=== PATIENT | female | born 1935 | race Caucasian/White ===

== ENCOUNTER 2024-09-08 04:38 | Inpatient (IN) | payer OTHER, SELFPAY ==
[2024-09-07 23:50] VITALS: BP 160/77
[2024-09-08] VITALS (12 sets, daily range): BP systolic 102–136; BP diastolic 46–66; BMI 31.8; BMI 30.9
--- NOTE | 2024-09-08 00:17 | ED.GENMED ---
History of Present Illness
General
Chief Complaint: Gait Dysfunction
Source: patient and family (Niece)
Exam Limitations: none
Time Seen by Provider: 09/08/24 00:02
History of Present Illness
History of Present Illness:
This is a 89 year old female that comes in with c/o weakness. States that she was unable to get out of the chair as she was so weak. States that she was in the chair most of the day and all day yesterday. States that they were trying to call her but
she couldn't get up to answer the phone. States that she has had back pain and was told that she has a disc problem. States that a month ago she lost power in the left leg and so 2-3 weeks ago she saw the environmental education specialist. State that they
ordered PT BID.. States that she feels that since the PT in the past week she is getting weaker. A couple days ago she couldn't get to the BR. States that she feels off balance and head a headache earlier today. States that she is also nauseated.
Denies any fever, chills, chest pain, SOB, abd pain, vomiting, diarrhea, urinary burning.
Past History
Past History
ED Past Medical History: HTN, Hypercholesterolemia, NIDDM and ND
ED Past Surgical History: Cardiac (CABG X 3, Stents, )
Social History
Tobacco: Non-smoker
Alcohol: None
Personal: Single
Living: alone
Review of Systems
Review of Systems
All Other Systems: ROS reviewed and negative except as documented in HPI and ROS
Constitutional: Reports no symptoms; Denies fever or chills
EENT: Reports no symptoms
Respiratory: Reports no symptoms; Denies cough or trouble breathing
Cardiac: Reports no symptoms; Denies chest pain
ABD/GI: Reports nausea; Denies abdominal pain, vomiting or diarrhea
: Reports no symptoms; Denies dysuria, frequency or urgency
Musculoskeletal: Reports other (Bilateral leg weakness)
Skin: Reports no symptoms
Neurological: Reports dizzy (Off balance) and headache
Psychiatric: Reports no symptoms
Phy Exam
General Physical Exam
General Presentation: no apparent distress
General age: appears stated age
General Skin: warm and dry
General Habitus: elderly
General Mental: alert
General Hydration: dry mucous membranes
ENT Exam
ENT Exam: TM's normal, pharynx normal and neck supple
Eye Exam
Eye Exam: EOMI
Cardiovascular Exam
Cardiovascular Exam: regular rate/rhythm, normal peripheral pulses and other (Murmur)
Pulmonary Exam
Pulmonary Exam: no respiratory distress, chest non tender, no rhonchi, no wheezing, no cough and other (Rales at bases)
Gastrointestinal Exam
Gastrointestinal Exam: normal bowel sounds, non tender, soft, no organomegaly, no pulsatile mass and non distended
Musculoskeletal Exam
Musculoskeletal Exam: full ROM and edema (Lower leg nonpitting )
Skin Exam
Skin Exam: normal color, warm/dry, no rash and no petechia
Psychiatric Exam
Psychiatric Exam: normal mood/affect
Scores
Heart Failure Risk
Heart Failure Risk Score: Yes
History of Stroke or TIA: No
History of intubation for respiratory distress: No
Heart rate on ED arrival >/= 110: No
SaO2 <90% on arrival on room air: No
HR >/=110 during 3min walk test (or too ill to perform test): Yes
ECG has acute ischemic changes: No
Urea >/=12mmol/L (BUN 33.6mg/dL): Yes
Serum CO2>/=35mmol/L: No
Troponin I or T elevated to ND Level (0.4mg/dL): Yes
NT-proBNP >/=5,000ng/L (5,000pg/ml): Yes
HF Risk Score: 6
Admission Status: VERY HIGH RISK 55.3% Consider admission to hospital
Course
Orders/Labs/Results
Orders:
Orders
09/08/24 00:16
CR Chest - 2 Views Urgent
Comment:
Reason For Exam: Rales, leg edema
09/08/24 00:17
CT Head W/o Iv Contrast Urgent
Comment:
Reason For Exam: Weakness, dizziness. Headache
09/08/24 00:22
Straight cath- Treatment ONCE
Complete Blood Count/With Diff Urgent
Comprehensive Metabolic Panel Urgent
Manual Differential Urgent
NT-proBNP Urgent
Troponin I Urgent
09/08/24 00:27
Electrocardiogram (*1) Urgent
Reason for Study: Fatigue / Weakness
EKG- Treatment ONCE
09/08/24 01:26
COVID-19 Antigen Urgent
Source: Nasal Swab
09/08/24 01:39
Urinalysis Reflex To Culture Urgent
Date Specimen was Collected: 09/08/24
Time Specimen was Collected: 01:27
Urine Microscopic Reflex Cult Urgent
Urine Culture Urgent
JOHNIE Source: U
Specimen Description:
Date Specimen was Collected: 09/08/24
Time Specimen was Collected: 01:27
09/08/24 01:51
EKG- Treatment ONCE
09/08/24 02:08
CefTRIAXone [Rocephin] 1,000 mg IV NOW STA
09/08/24 03:20
Electrocardiogram (*1) Urgent
Reason for Study: Fatigue / Weakness
Other Reason for Exam: Repeat with Troponin
Troponin I Urgent
Abnormal Lab Results
09/08/24 09/08/24
00:22 01:39
WBC 17.2 H 10^3/uL
(4.8-10.8)
RBC 3.83 L 10^6/uL
(4.20-5.40)
Hgb 10.6 L g/dL
(12.0-16.0)
Hct 31.0 L %
(37.0-47.0)
MCV 80.9 L fL
(81.0-99.0)
RDW 14.8 H %
(11.5-14.5)
Abs Neuts (Manual) 16.5 H 10^3/uL
(1.4-6.5)
Segmented Neutrophils 86 H %
(42-75)
Band Neutrophils 10 H %
(0-3)
Lymphocytes (Manual) 1 L %
(20-51)
Monocytes (Manual) 1 L %
(2-9)
Sodium 129 L mmol/L
(135-145)
Chloride 97 L mmol/L
(98-107)
Carbon Dioxide 16 L mmol/L
(22-30)
BUN 63 H mg/dl
(7-17)
Creatinine 2.1 H mg/dL
(0.6-1.0)
Glucose 252 H mg/dl
(70-99)
Alkaline Phosphatase 142 H U/L
(38-126)
Troponin I 0.185 H* ng/ml
Ur Occult Blood Reflex 4+ A
(Negative)
Leukocyte Esterase Rfl 2+ A
(Negative)
Urine WBC (Reflex) >100 A /HPF
(0-5)
Urine Bacteria (Reflex) Many A
(Negative)
Urine Albumin (Reflex) 2+ A
(Neg - Trace)
09/08/24 00:22
09/08/24 00:22
Leukocytosis, H/H low. Hyponatremia, Chloride slightly low. Carbon dioxide low. Acute renal failure, Hyperglycemia. Alk phos elevation. Troponin 0.185 Pro-BNP 8340,
Urine is positive for infection.
Vital Signs
Initial and Last Documented VS:
Initial Vital Signs
Temp Pulse Resp BP Pulse Ox
99.3 F 84 22 160/77 97
09/07/24 23:50 09/07/24 23:50 09/07/24 23:50 09/07/24 23:50 09/07/24 23:50
Last Documented Vital Signs
Temp Pulse Resp BP Pulse Ox
99.3 F 80 23 119/54 95
09/07/24 23:50 09/08/24 01:45 09/08/24 01:45 09/08/24 01:41 09/08/24 01:45
MDM/Problems Addressed
Differential Diagnosis Includes:
Generalized weakness. CHF, COVID,
MDM/Problems Addressed:
This is a 89 year old female that comes in with c/o weakness. States that she has not been able to get out of the chair in the past 2 days. States that her legs re very weak. States that she has been getting PT and she felt that she is getting worse.
Will check labs, CT head, ECG, COVID.
Back into see patient. Explained that she would be admitted. Explained that her WBC are elevated and this may be due to a UTI but urine is still pending but there is a fowl smell. Her Troponin is elevated along with her Pro-BNP. Her Kidney function
is also elevated. Patient has no prior labs. Will admit.
Chronic conditions affecting care: DM and CAD
Acute Exacerbation and/or Progression of Chronic Illness:
NA
*Radiology
Radiology exam reviewed: preliminary read by ED provider (Chest- Cardiomegaly, Negative for acute disease. ) and radiology read reviewed (CT head- Night hawk- No acute intracranial findings. No evidence of intracranial hemorrhage, mass effect,
midline shift, or extra-axial fluid collection. )
*Pulse Oximetry
Patient hypoxic: no
*EKG
Interpreted by ED Provider?: Yes
Heart Rate: 83
Rate: normal
Rhythm: sinus
[place]: left axis deviation
Interval: normal interval
QRS Pattern: right bundle branch block
Ischemia: ST depression (with T wave inversion, V1, V2, V3, )
*Critical Care Note
Total Time (30-74mins, 75-104mins- exclusive of procedures): Not Applicable
ED Attending Note
-
Portions of this chart may have been created with voice recognition software.� Occasional wrong word or��sound alike� substitutions may have occurred due to the inherent limitations of voice recognition software.
Discharge Plan
Departure
Patient Disposition: Admit
Date of Disposition: 09/08/24
Time of Disposition: 01:59
Admit to: Telemetry
Presentation/result/management discussed w/ accepting MD/DO: Hospitalist
Patient with high blood pressure during this ER visit?: No
Condition: Good
Covid-19: Negative COVID-19
Discharge Problem:
Weakness, Elevated troponin, Acute renal failure, Urinary tract infection
Prescriptions:
No Action
Amlodipine Besilate
5 mg PO BID
metformin 500 mg Tablet
500 mg PO BID
atorvastatin 10 mg Tablet
10 mg PO HS
metoprolol tartrate 100 mg Tablet
100 mg PO BID
glimepiride 2 mg Tablet
2.5 PO DAILY
hydrochlorothiazide 12.5 mg Capsule
12.5 mg PO .3X PER WEEK
Januvia 100 mg Tablet
100 mg PO DAILY
lisinopril
1 tab PO DAILY
Patient Comments:
DOESN'T KNOW MG
Interventions
Interventions:
*Risk Screen - Suicide Last Done: 09/07/24 23:50
*General Assessment Last Done: 09/08/24 00:23
*Neglect/Abuse Screening Last Done: 09/07/24 23:50
ED- Fall Risk Assessment Last Done: 09/08/24 00:23
*ED COVID-19 Vaccine History Last Done: 09/08/24 00:23
ED- Pulmonary Assessment Last Done: 09/08/24 00:23
ED- Neurological Assessment Last Done: 09/08/24 00:23
ED-Musculoskeletal Assessment Last Done: 09/08/24 00:23
ED- Cardiac Assessment Last Done: 09/08/24 00:23
Discharge Date and Time
Print Language: [place] CITIZEN
[2024-09-08 01:10] LABS: Hemoglobin 10.6 g/dL (12.0-16.0); Mean Corp Hgb Conc. 34.2 g/dL (33.0-37.0); Mean Corpuscular Hgb 27.7 pg (27.0-31.0); Mean Corpuscular Volume 80.9 fL (81.0-99.0); Mean Platelet Volume 9.8 fL (7.4-10.4); Platelet Count 208 10^3/uL (130-400); Red Blood Cell Count 3.83 10^6/uL (4.20-5.40); Red Cell Dist. Width 14.8 % (11.5-14.5); White Blood Cell Count 17.2 10^3/uL (4.8-10.8)
[2024-09-08 01:21] LABS: NT-proBNP 8340 pg/ml
[2024-09-08 01:22] LABS: ALT (SGPT) 15 U/L (0-35); AST (SGOT) 23 U/L (14-36); Albumin 3.5 g/dl (3.5-5.0); Alkaline Phosphatase 142 U/L (38-126); Blood Urea Nitrogen 63 mg/dl (7-17); Calcium 8.7 mg/dl (8.4-10.2); Carbon Dioxide 16 mmol/L (22-30); Chloride 97 mmol/L (98-107); Estimated Creatinine Clearance 20 ml/min; Glucose 252 mg/dl (70-99); Potassium 4.6 mmol/L (3.5-5.1); Sodium 129 mmol/L (135-145); Total Bilirubin 0.5 mg/dl (0.2-1.3); Total Protein 6.4 g/dl (6.3-8.2); eGFR 22.38
[2024-09-08 01:44] LABS: Troponin I 0.185 ng/ml
[2024-09-08 01:51] LABS: Absolute Neutrophils -Man Diff 16.5 10^3/uL (1.4-6.5); Band Neutrophils 10 % (0-3); Eosinophils 2 % (0-6); Lymphocytes 1 % (20-51); Monocytes 1 % (2-9); Normal RBC Morphology Yes; Platelets Checked Yes; Segmented Neutrophils 86 % (42-75); Total Cells Counted 100; Toxic Granulation 1+; Vacuolated Segs Occasional
[2024-09-08 01:53] LABS: COVID-19 Antigen Negative (Negative)
[2024-09-08 01:54] LABS: Urine Albumin 2+ (Neg - Trace); Urine Bilirubin Negative (Negative); Urine Character Slightly Cloudy (Clear); Urine Color Yellow; Urine Glucose Negative (Negative); Urine Ketone Negative (Negative); Urine Leukocyte 2+ (Negative); Urine Nitrite Negative (Negative); Urine Occult Blood 4+ (Negative); Urine Specific Gravity 1.015 (<1.030); Urine Urobilinogen Negative (Neg - 1+)
[2024-09-08 02:02] LABS: Urine Amorphous Seen; Urine Bacteria Many (Negative); Urine Squamous Cell >30 /LPF (Few); Urine White Cell >100 /HPF (0-5)
[2024-09-08 02:04] LABS: Urine Granular Cast 0-2 /LPF (0); Urine White Cell Cast 0-2 /LPF
[2024-09-08] MEDS: ROCEPHIN 1000 MG IV (02:39)
--- NOTE | 2024-09-08 03:03 | HPS.HSE ---
Family Physician
-
Family Physician:
Chief Complaint
-
Weakness
History of Present Illness
This is a 89-year-old with past medical history significant for CAD status post CABG, hypertension, hyperlipidemia and mvl-ymqmukc-msuktkyzc diabetes who presents to the emergency department with difficulty with ambulation.
Patient was recently diagnosed with knee arthritis as well as sciatica. She has been having trouble with ambulation but has been improving with physical therapy up until around Thursday. She started having gait difficulties on Thursday. Thereafter
she started feeling weak and today patient was not even able to get out of bed. She reported that she was getting call from family members but she had no strength to get out of bed to picking crew supervisor the phone. Ultimately family members came to visit and
had to give her food. During [place] gathering patient was weak and unable to ambulate so family brought her to the emergency department. Patient herself denies chest pain, dyspnea on exertion palpitations lightheadedness or dizziness. She
denies any abdominal pain. She denies dysuria hematuria. He denies flank pain. She denies incontinence or frequency. Patient denies fevers or chills. She has no known sick contacts. At baseline she ambulates with a cane and she is still lives
by self and drives.
In the ED she was afebrile with a temp of 99.3, blood pressure was stable at 120/50 with a pulse of 80. She was satting 98% on room air. ECG shows sinus rhythm with a rate of 82 and a right bundle. No prior to compare. Troponin was elevated at
0.1 and a BNP was also elevated at 8000. UA was positive with WBCs bacteria and leukocyte esterase. No nitrites. She had a white count of 17,000 with 10% bandemia. Hemoglobin and platelet counts were normal. Sodium was 129, BUN and creatinine
elevated at 63 and 2.1 but we do not have priors. Chest x-ray shows no acute infiltrates. CT of the head shows no acute intracranial abnormalities.
Medical History
Past Medical History
Past Medical History: Reports CAD, HTN, Hypercholesterolemia and NIDDM
Additional Past Medical History:
Sciatica
Past Surgical History: Reports Cardiac (Status post CABG in 2003, unknown history of stents.)
Social History
Tobacco: Non-smoker
Alcohol: None
Drug: None
Personal: Single
Living: Alone
Employment: Retired
Family History
Family History: Not pertinent
Allergies / Home Medications
Allergies reflects when Allergies were last updated in [facility] [employer].
Home Medications with original date entered in [facility]
Allergy/Medication List:
Allergies
Allergy/AdvReac Type Severity Reaction Status Date / Time
No Known Allergies Allergy Verified 09/07/24 23:53
Home Medications
Amlodipine Besilate 5 mg PO BID 09/08/24
atorvastatin 10 mg tablet 10 mg PO HS 09/08/24
glimepiride 2 mg tablet 2.5 PO DAILY 09/08/24
hydrochlorothiazide 12.5 mg capsule 12.5 mg PO .3X PER WEEK 09/08/24
lisinopril 1 tab PO DAILY 09/08/24
metformin 500 mg tablet 500 mg PO BID 09/08/24
metoprolol tartrate 100 mg tablet 100 mg PO BID 09/08/24
sitagliptin phosphate 100 mg tablet (Januvia) 100 mg PO DAILY 09/08/24
Review of Systems
-
Constitutional: Reports Fatigue
EENT: Reports No Symptoms
Respiratory: Reports No Symptoms
Cardiac: Reports No Symptoms
Abdomen/GI: Reports No Symptoms
: Reports No Symptoms
Musculoskeletal: Reports Edema
Skin: Reports No Symptoms
Neurological: Reports Weakness
Endocrine: Reports No Symptoms
Hematologic/Lymphatic: Reports No Symptoms
Psych: Reports No Symptoms
Physical Exam
Vital Signs
Vital Signs
Temp Pulse Resp BP Pulse Ox
99.3 F 80 23 119/54 95
09/07/24 23:50 09/08/24 01:45 09/08/24 01:45 09/08/24 01:41 09/08/24 01:45
Physical Exam
General: Well Developed, Well Nourished, Comfortable and Conversant
HEENT: NormoCephalic, Anicteric, Moist mucous membranes and Atraumatic
Respiratory: Clear and Non Labored Respirations
Cardiac: S1/S2 and Regular Rhythm
Breast: Deferred by me
GI: Soft, Non Tender, Non Distended and Normal Bowel Sounds
Rectal: Deferred by Provider
Genito-urinary: Turbid Urine
Musculoskeletal: No Clubbing, No Cyanosis, Edema, Left Lower Extremity and Edema, Right Lower Extremity
Skin: Warm
Neuro: AO x 3 and Nonfocal/grossly intact
Hematologic/Lymphatic: No Lymphadenopathy
Psych: Calm
Laboratory Results
-
09/08/24 00:22
09/08/24 00:22
Laboratory Results
Total Bilirubin 0.5 mg/dl (0.2-1.3) 09/08/24 00:22
AST 23 U/L (14-36) 09/08/24 00:22
ALT 15 U/L (0-35) 09/08/24 00:22
Alkaline Phosphatase 142 U/L (38-126) H 09/08/24 00:22
Troponin I 0.185 ng/ml H* 09/08/24 00:22
Data Reviewed
-
Diagnostic Radiology: Image Personally Visualized and interpreted
CT Scan: Report Reviewed by me
Medical Tests (Nuc Med, Echo, EKG etc): Image Personally Visualized and interpreted
Lab Data: Labs Reviewed by me
Old Records: Reviewed
Impression/Plan
-
IMPRESSION:
89-year-old with past medical history significant for CAD status post CABG, hypertension and diabetes presenting to the emergency department with generalized weakness but mostly lower extremity, chronic lower extremity swelling and found to have a
positive UA, she has signs of systemic infection with leukocytosis and bandemia. Troponin was elevated at 0.18 and BNP was also elevated without other signs of overt heart failure.
PLAN:
1. Weakness - Patient with acute weakness over the last 3 days. U/A is positive. COVID is negatvie. She has leukocytosis and bandemia. Presumed UTI
- admit to telemetry due to elevated trop
- urine cultures sent
- blood cultures if febrile
- iv ceftriaxone for now (no h/o recent abx or hospitalization but systemic findings on labs)
- PT evaluation
2. CAD - h/o CAD s/p CABg here with trop of 0.18. No chest pain and normal ECG. Suspect non-ischemic myocardial injury but cannot rule out cardiomyopathy
- telemetry
- cycle enzymes
- aspirin 81 and statin
- echo in am, cardiovascular testing and tsh
- cardiology consult
- no heparin for now
- treating underlying infection
3. SUKUMAR - No baseline creatinine for comparison. Patient does not follow up closely. She is on acei and hctz chronically. Does not look particularly dehydrated. Possible CKD
- obtain records from physicians
- check renal u/s
- avoid nephrotoxins
- hold acei and hctz for now
- renal consult pending records
4. Hyponatremia - Suspect acute on chronic. On fairly low dose hctz
- hold hctz
- orthostatic vital signs
- check tsh and cortisol as well as urine studies
5. DM II
- hold metformin
- continue glimepiride w/ sliding scale insulin
DVT PPX - heparin sq
Code status - full code
[2024-09-08 04:08] LABS: Troponin I 0.326 ng/ml
[2024-09-08] MEDS: LOW STRENGTH ASPIRIN 324 MG PO (04:40)
[2024-09-08 05:50] LABS: Hematocrit 28.1 % (37.0-47.0); Hemoglobin 9.6 g/dL (12.0-16.0); Mean Corp Hgb Conc. 34.2 g/dL (33.0-37.0); Mean Corpuscular Hgb 27.7 pg (27.0-31.0); Mean Corpuscular Volume 81.2 fL (81.0-99.0); Platelet Count 206 10^3/uL (130-400); Red Blood Cell Count 3.46 10^6/uL (4.20-5.40); Red Cell Dist. Width 14.7 % (11.5-14.5); White Blood Cell Count 15.3 10^3/uL (4.8-10.8)
[2024-09-08 06:14] LABS: Troponin I 0.334 ng/ml
[2024-09-08 06:15] LABS: Blood Urea Nitrogen 63 mg/dl (7-17); Calcium 8.5 mg/dl (8.4-10.2); Carbon Dioxide 19 mmol/L (22-30); Chloride 97 mmol/L (98-107); Creatine Phosphokinase 45 U/L (30-135); Estimated Creatinine Clearance 20 ml/min; Glucose 227 mg/dl (70-99); HDL Cholesterol 20 mg/dl; LDL Cholesterol, Calculated 49 mg/dl; Magnesium 1.9 mg/dl (1.6-2.3); Potassium 4.4 mmol/L (3.5-5.1); Sodium 127 mmol/L (135-145); Total Cholesterol 102 mg/dl (50-199); Triglyceride 166 mg/dl (10-149); Very Low Density Lipoprotein 33 mg/dl (0-30); eGFR 22.38
[2024-09-08 06:33] LABS: TSH 2.05 uIU/ml (0.47-4.68)
--- NOTE | 2024-09-08 06:36 | PTCARENOTE ---
Pt admitted to rm 339-1 and was pulled over from stretcher to bed d/t LE weakness. Pt aaox3 and VSS. Pt NSR w/ BBB on tele #13. Pt voided on bedpan and was instructed to use call scales to call staff. Eligio Salmon at bedside during admission. Call
scales within reach, and plan of care ongoing.
[2024-09-08 07:01] LABS: Urine Sodium 62 mmol/L (30-90)
[2024-09-08] MEDS: TYLENOL 650 MG PO (07:09)
[2024-09-08 07:25] LABS: Osmolality Urine 355 mOsm/kg (300-900)
--- NOTE | 2024-09-08 07:38 | PTCARENOTE ---
Pt c/o pain in lower abd that was 'shooting down legs'. Per pt and chart, recent diagnosis of sciatica. Pt repositioned w/ a pillow under buttocks and sat up. PRN Tylenol 650mg given (see MAR). Pt stated repositioning her 'took some of the pressure
off' her back. Dayshift RN given report and notified. Plan of care ongoing and call scales within reach.
--- NOTE | 2024-09-08 08:12 | CON.CAR ---
Addendum entered and electronically signed by Alan Gama MD 09/08/24 15:21:
Echo shows normal LVEF, and wall motion. Consistent with acute non-ischemic myocardial injury in setting of UTI.
She also has moderate TR and moderate pulmonary hypertension on echo.
Please call us back with additional questions.
Addendum entered and electronically signed by Alan Gama MD 09/08/24 11:05:
89 yo female with PMH of CAD/CABG, HTN, hyperlipidemia is admitted with weakness. Found to have UTI and SUKUMAR. No chest pain, SOB. We are consulted for elevated troponin. Exam with RRR, no murmurs, 1+ LE edema. TnI 0.33. EKG: NSR, 1st degree AVB,
iRBBB.
Elevated troponin. Suspect acute non-ischemic myocardial injury in setting of UTI. Will check echo. If unremarkable, she can follow up with candle wrapping machine operator as outpatient.
CAD/CABG. Stable: continue ASA, statin.
Original Note:
Consultation
Consultation Request
Date/Time Consultation Requested: 09/08/24 05
Date/Time Consultation Performed: 09/08/24 0800
Requesting Provider: Dr. Weaver
Performing Provider: Edwina PICKETT for Dr. Gama
Reason for Consultation: Abnormal troponin
Medical History
-
Chief Complaint: weakness
History of Present Illness:
89 y/o female with CAD s/p CABG 2003 ([place])- candle wrapping machine operator Dr. Altamirano (but hasn't seen in about 10 years), hypertension, dyslipidemia, and diabetes who is here for evaluation of weakness over the past few days. She has been dealing with LLE pain and
is in PT for that after seeing an orthopedic physician who felt it was hamstring related. She has BLE edema L > R, which is chronic, but a bit worse than usual. She had lower abdominal and back pain overnight, but feels much better after Tylenol and
repositioning by nursing. Her niece Viky is at the bedside and helps with history. Patient is seen to have a UTI, SUKUMAR (we don't have a baseline, but patient denies history of renal dysfunction), and hyponatremia. She is being treated with
antibiotics. We are consulted for abnormal troponin. EKG abnormal with IC RBBB and ST/T abnormalities, but no baseline to compare. Patient denies any CP or SOB. She is in no distress at the time of my assessment.
Past Medical History
Past Medical History: CAD, HTN, Hypercholesterolemia and NIDDM
Social History
Tobacco: Non-Smoker
Alcohol: None
Family History
Family History: Reviewed & Not Pertinent
Allergies / Home Medications
Allergy/AdvReac Type Severity Reaction Status Date / Time
No Known Allergies Allergy Verified 09/07/24 23:53
�Medication �Instructions �Recorded �Confirmed �Type
Amlodipine Besilate 5 mg PO BID 09/08/24 09/08/24 History
atorvastatin 10 mg tablet 10 mg PO HS 09/08/24 09/08/24 History
glimepiride 2 mg tablet 2.5 PO DAILY 09/08/24 History
hydrochlorothiazide 12.5 mg capsule 12.5 mg PO .3X PER WEEK 09/08/24 09/08/24 History
lisinopril 1 tab PO DAILY 09/08/24 09/08/24 History
metformin 500 mg tablet 500 mg PO BID 09/08/24 09/08/24 History
metoprolol tartrate 100 mg tablet 100 mg PO BID 09/08/24 09/08/24 History
sitagliptin phosphate 100 mg 100 mg PO DAILY 09/08/24 09/08/24 History
tablet (Januvia)
Review of Systems
-
History Source: Patient
All other systems: Negative unless noted
Abdomen/GI: Abdominal Pain
Musculoskeletal: Edema and Other (back pain, LLE pain)
Neurological: Weakness
Physical Exam
Vital Signs
Temp Pulse Resp BP Pulse Ox
100.0 F 92 18 136/57 97
09/08/24 07:40 09/08/24 07:40 09/08/24 07:40 09/08/24 07:40 09/08/24 07:40
Lab Results
09/08/24 05:22
09/08/24 05:22
Troponin I 0.334 ng/ml H* 09/08/24 05:22
Lde-H-Zgvkmhkeghc Pept 8340 pg/ml 09/08/24 00:22
Physical Exam
General: Well Developed, Well Nourished and No Apparent Distress
HEENT: Normocephalic and Anicteric
Respiratory: Clear and Non Labored Respirations
Cardiac: Regular Rhythm
Musculoskeletal: Edema (mild BLE edema, L > R- chronic, but worsened recently)
Skin: Warm and Dry
Neuro: AO x 3
Psych: Calm
Impression / Plan
-
UTI (leukocytosis, low grade temp, abdominal/back pain, abnormal UA):
-antibiotics per primary team
Abnormal troponin:
-EKG abnormal as noted in detail, but no baseline and known heart disease
-denies CP or SOB
-suspect acute, non-ischemic myocardial injury in setting of acute illness with infection/UTI, SUKUMAR, hyponatremia
-can trend to peak and obtain echo
SUKUMAR:
-unknown baseline, but patient reports getting routine labs and never being told of renal issues. Metformin held.
-nephrology is consulted
Hyponatremia:
-worsened 127 now, HCTZ held
-nephrology consulted as above
CAD s/p CABG 2004:
-reports no cardiac issues since then
-continue ASA (I confirmed that she does take a baby aspirin every day at home), statin, and BB
HTN:
-stable
-continue CCB and BB
DM:
-per primary team
Data Reviewed
-
EKG: Tracing Personally Visualized and interpreted (NSR IC RBBB, ST/T abnormalities)
Radiology: Report Reviewed by me (CXR: Low lung volumes with mildly increased bronchovascular markings bilaterally. Scattered linear opacities compatible with atelectasis. No significant effusions. No pneumothorax.)
CT Scan: Report Reviewed by me (No acute intracranial abnormality.)
Medical Tests (Nuc Med, Echo etc): Other (echo ordered)
Labs: Labs Reviewed by me
[2024-09-08 08:37] LABS: Glucose - Point of Care 211 mg/dl (70-99)
[2024-09-08] MEDS: HEPARIN 5000 UNITS SC ×3 (09:02→23:02)
[2024-09-08] MEDS: SODIUM BICARBONATE 325 MG PO ×3 (09:03→22:58)
[2024-09-08] MEDS: AMARYL 2 MG PO (09:04)
[2024-09-08] MEDS: LOPRESSOR 100 MG PO ×2 (09:04→20:09)
--- NOTE | 2024-09-08 11:01 | W.PN.HOSP.TC ---
Today's Communication/Plan
-
Continue on telemetry
Trend troponins until they peak.
Consults pending.
Assessment / Plan
Assessment / Plan
89-year-old woman with past medical history of:
CAD status post CABG,
hypertension
diabetes
comes in with generalized weakness, chronic lower extremity swelling, a positive UA, signs of systemic infection with leukocytosis and bandemia. Troponin was elevated at 0.18 and BNP was also elevated without other signs of overt heart failure.
PLAN:
1. Weakness - likely multifactorial. U/A is positive. COVID is negative. She has leukocytosis and bandemia. Presumed UTI
- continue on telemetry due to elevated trop
- follow urine cultures
- blood cultures if febrile
- iv ceftriaxone
- PT evaluation
2. CAD - h/o CAD s/p CABg with trop of 0.18. No chest pain and normal ECG. Suspect non-ischemic myocardial injury but cannot rule out cardiomyopathy
- continue on telemetry
- cycle enzymes until they peak
- aspirin 81 and statin
- echo in am, cardiovascular testing and tsh
- cardiology consult appreciated
- no heparin for now
- treating underlying infection
3. SUKUMAR - No baseline creatinine for comparison. Patient does not follow up closely. She was on velma-i and hctz chronically. Does not look particularly dehydrated. Possible CKD
- obtain records from physicians
- renal u/s does not show blockage
- avoid nephrotoxins
- hold acei and hctz for now
- renal consult pending
4. Hyponatremia - Suspect acute on chronic. On fairly low dose hctz
- hold hctz
- orthostatic vital signs
- check tsh and cortisol as well as urine studies
-check daily
5. DM II
- hold metformin
- continue glimepiride w/ sliding scale insulin
6. Anemia, H/H 9.6/28.1
- follow daily
- no current indication for transfusion
DVT PPX - heparin sq
Full code
Anticipated Discharge: > 48 hours
Subjective/Interval History
-
Date of Service: September 08, 2024
Feels much better. No new symptoms.
Objective Data
-
Labs:
Laboratory Results
09/08/24 09/08/24
00:22 05:22
WBC 17.2 H 15.3 H
Hgb 10.6 L 9.6 L
Hct 31.0 L 28.1 L
Plt Count 208 206
Sodium 129 L 127 L
Potassium 4.6 4.4
Chloride 97 L 97 L
Carbon Dioxide 16 L 19 L
BUN 63 H 63 H
Creatinine 2.1 H 2.1 H
Glucose 252 H 227 H
Calcium 8.7 8.5
Total Bilirubin 0.5
AST 23
ALT 15
Alkaline Phosphatase 142 H
Vital Signs:
Vital Signs
Temp Pulse Resp BP Pulse Ox
100.0 F 92 18 136/57 97
09/08/24 07:40 09/08/24 09:04 09/08/24 07:40 09/08/24 09:04 09/08/24 07:40
Review of Systems
-
History Source: Patient
All other systems: Reviewed and negative
Physical Exam
-
General: Well Developed, Well Nourished, No Apparent Distress, Comfortable and Obese
HEENT: Normocephalic, Nose Appears Normal and Ears Appear Normal
Respiratory: Clear to Auscultation
Cardiac: Regular Rhythm and S1/S2
GI: Soft, Nontender and Nondistended
Musculoskeletal: No Clubbing, No Cyanosis and No Edema
Skin: Warm and Dry
Neuro: Awake, Alert and Oriented
Psych: Calm
Data Reviewed
-
Labs: Labs Reviewed by me
[2024-09-08 11:45] LABS: Troponin I 0.272 ng/ml
--- NOTE | 2024-09-08 12:45 | CM ---
Patient seen at bedside with nephew present. Per Niece Lary; listed on contact list. Patient lives in an apartment on first floor 6 steps to enter. Family supports in place include, her parents and number of Nieces and nephews. Patient PCP "Keenan"Galo and she uses the [facility] on [facility]. Patient family plan is for her to return to the apartment when medically appropriate and family to assist. CM will continue to follow for discharge planning needs.
Plan; home with family supports; watch for home VN needs.
[2024-09-08 13:00] LABS: Glucose - Point of Care 276 mg/dl (70-99)
[2024-09-08] MEDS: NOVOLOG FLEXPEN-LOW RESISTANCE SC (13:06)
[2024-09-08] MEDS: NOVOLOG FLEXPEN-LOW RESISTANCE 3 UNITS SC (13:46)
--- NOTE | 2024-09-08 15:40 | W.CON.NEPH ---
Consultation
-
Date/Time Consultation Requested: September 08, 2024 at 6 AM
Date/Time Consultation Performed: September 08, 2024 at 3:30 PM
Requesting Provider: Dr. Waever
Performing Provider: Amaury Daniel DO
Reason for Consultation: Acute kidney injury
Medical History
-
Chief Complaint: Acute kidney injury
History of Present Illness:
89-year-old with past medical history significant for CAD status post CABG, hypertension, hyperlipidemia and qdl-yxjrzdn-qklwypqar diabetes who presents to the emergency department with difficulty with ambulation.
Renal consult for creatinine of 2.1 uncertain baseline patient says she has not been told she has a kidney issues
Of note she is had a injured hamstring which she has been instructed to take Advil for. She has been taking 2 Advil twice a day for about 3 weeks. She has some difficulty urinating but no dysuria she does have back pain
Also presents with a sodium 127 on hydrochlorothiazide
She has no chest pain shortness of breath nausea or vomiting she does have increased lower extremity edema
Past Medical History
CAD status post CABG, hypertension, hyperlipidemia and ipc-khlwboe-dfgorbdol diabetes
Social History
Tobacco: Non-Smoker
Alcohol: None
Family History
No family history of renal disease
Allergies / Home Medications
Allergy/AdvReac Type Severity Reaction Status Date / Time
No Known Allergies Allergy Verified 09/07/24 23:53
�Medication �Instructions �Recorded �Confirmed �Type
Amlodipine Besilate 5 mg PO BID 09/08/24 09/08/24 History
atorvastatin 10 mg tablet 10 mg PO HS 09/08/24 09/08/24 History
glimepiride 2 mg tablet 2.5 PO DAILY 09/08/24 History
hydrochlorothiazide 12.5 mg capsule 12.5 mg PO .3X PER WEEK 09/08/24 09/08/24 History
lisinopril 1 tab PO DAILY 09/08/24 09/08/24 History
metformin 500 mg tablet 500 mg PO BID 09/08/24 09/08/24 History
metoprolol tartrate 100 mg tablet 100 mg PO BID 09/08/24 09/08/24 History
sitagliptin phosphate 100 mg 100 mg PO DAILY 09/08/24 09/08/24 History
tablet (Januvia)
Review of Systems
-
Lower extremity edema decreased urine output difficulty ambulating
All other systems: Negative unless noted
Physical Exam
Vital Signs
Vital Signs
Temp Pulse Resp BP Pulse Ox
97.7 F 69 16 102/58 97
09/08/24 11:35 09/08/24 11:35 09/08/24 11:35 09/08/24 11:35 09/08/24 11:35
Lab Results
WBC 15.3 10^3/uL (4.8-10.8) H 09/08/24 05:22
RBC 3.46 10^6/uL (4.20-5.40) L 09/08/24 05:22
Hgb 9.6 g/dL (12.0-16.0) L 09/08/24 05:22
Hct 28.1 % (37.0-47.0) L 09/08/24 05:22
Plt Count 206 10^3/uL (130-400) 09/08/24 05:22
Sodium 127 mmol/L (135-145) L 09/08/24 05:22
Potassium 4.4 mmol/L (3.5-5.1) 09/08/24 05:22
Chloride 97 mmol/L (98-107) L 09/08/24 05:22
Carbon Dioxide 19 mmol/L (22-30) L 09/08/24 05:22
BUN 63 mg/dl (7-17) H 09/08/24 05:22
Creatinine 2.1 mg/dL (0.6-1.0) H 09/08/24 05:22
eGFR 22.38 09/08/24 05:22
Glucose 227 mg/dl (70-99) H 09/08/24 05:22
Calcium 8.5 mg/dl (8.4-10.2) 09/08/24 05:22
Fiz-V-Vxcgwjnfdqs Pept 8340 pg/ml 09/08/24 00:22
Albumin 3.5 g/dl (3.5-5.0) 09/08/24 00:22
Physical Exam
General no acute distress
HEENT no cephalic atraumatic extraocular muscle intact no scleral icterus no JVD neck supple
lungs clear to auscultation bilateral
heart regular S1-S2 positive
abdomen soft nontender positive bowel sounds
extremities +2 edema bilateral l
Neurologically nonfocal alert and oriented x 3
Skin no lesions no abrasions no petechiae
Psych normal affect no bizarre behavior
Data Reviewed
-
Radiology: Image Personally Visualized and interpreted
Ultrasound: Image Personally Visualized and interpreted (Nonobstructive renal pathology. Normal-sized kidney. Normal cortex thickening with some mild echogenicity)
Labs: Labs Reviewed by me
Assessment/Plan
-
Impression:
Acute on chronic kidney disease unknown baseline. She has chronic kidney disease based on age alone (creatinine on admission 2.1)
Hyponatremia= 127
Leukocytosis likely UTI
History of CAD mild elevation in troponin= echocardiogram on this admission ejection fraction 55 to 60% with stage II diastolic dysfunction
Type 2 diabetes
Plan:
Acuity multifactorial secondary to Advil use twice a day for 3 weeks for left hamstring pain, superimposed on possible UTI in conjunction with hydrochlorothiazide and KAVON inhibitor: Enalapril
Agree with holding metformin/lisinopril/hydrochlorothiazide
Urinalysis noted greater than 100 white blood cells positive hematuria positive bacteria
Check eosinophils
Renal ultrasound independently reviewed no obstructive pathology/no renal calculi/normal size and minimal echogenicity
Corrected sodium for glucose 130
Decreased effective arterial blood volume contributing to clinical presentation but with significant lower extremity edema we will give her 1 dose of loop diuretic
Continue antibiotic and await cultures
Daily weights
Discussed with the family at bedside
[2024-09-08] MEDS: LASIX 40 MG IV (16:44)
[2024-09-08 17:51] LABS: Glucose - Point of Care 152 mg/dl (70-99)
[2024-09-08] MEDS: NOVOLOG FLEXPEN-LOW RESISTANCE 1 UNITS SC (17:58)
[2024-09-08 21:50] LABS: Glucose - Point of Care 160 mg/dl (70-99)
[2024-09-08 22:54] LABS: Protein/creatinine Ratio 1.8; Urine Protein 37 mg/dl
[2024-09-08] MEDS: LIPITOR 10 MG PO (22:58)
[2024-09-08 23:16] LABS: Body Fluid for Eosinophils No Eosinophils seen
[2024-09-09] MEDS: STERILE WATER FOR INJECTION 10 ML IV (01:47)
[2024-09-09] MEDS: ROCEPHIN 1000 MG IV (01:47)
--- NOTE | 2024-09-09 02:05 | PTCARENOTE ---
Pt juma in the 30s via telemetry. When woken up reported nausea, BP 164/67, denies dizziness/CP/SOB. Nausea resolved almost immediately, denies need to antiemetic. [employer] covering house made aware.
[2024-09-09 03:20] VITALS: BP 108/54
[2024-09-09 07:28] VITALS: BP 127/56
[2024-09-09 07:34] LABS: Glucose - Point of Care 69 mg/dl (70-99)
[2024-09-09] MEDS: NOVOLOG FLEXPEN-LOW RESISTANCE SC ×3 (07:38→17:38)
[2024-09-09 07:59] LABS: Glucose - Point of Care 80 mg/dl (70-99)
[2024-09-09 08:26] LABS: Hematocrit 28.5 % (37.0-47.0); Hemoglobin 9.7 g/dL (12.0-16.0); Mean Corpuscular Hgb 27.6 pg (27.0-31.0); Mean Platelet Volume 10.2 fL (7.4-10.4); Platelet Count 214 10^3/uL (130-400); Red Blood Cell Count 3.52 10^6/uL (4.20-5.40); Red Cell Dist. Width 14.9 % (11.5-14.5); White Blood Cell Count 12.7 10^3/uL (4.8-10.8)
[2024-09-09 08:33] LABS: Blood Urea Nitrogen 58 mg/dl (7-17); Calcium 8.3 mg/dl (8.4-10.2); Carbon Dioxide 20 mmol/L (22-30); Chloride 97 mmol/L (98-107); Estimated Creatinine Clearance 24 ml/min; Glucose 66 mg/dl (70-99); Potassium 3.6 mmol/L (3.5-5.1); Sodium 129 mmol/L (135-145); eGFR 28.84
[2024-09-09] MEDS: AMARYL 2 MG PO (08:46)
[2024-09-09] MEDS: SODIUM BICARBONATE 325 MG PO ×3 (08:46→21:07)
[2024-09-09] MEDS: HEPARIN 5000 UNITS SC ×3 (08:47→23:05)
[2024-09-09] MEDS: LOW STRENGTH ASPIRIN 81 MG PO (08:47)
[2024-09-09] MEDS: LOPRESSOR 100 MG PO ×2 (08:47→19:27)
[2024-09-09 11:11] VITALS: BP 145/60
[2024-09-09 11:53] LABS: Glucose - Point of Care 102 mg/dl (70-99)
--- NOTE | 2024-09-09 12:05 | W.PN.NEPH.PH ---
Today's Communication / Plan
-
lasix
Assessment/Plan
-
Impression:
Acute on chronic kidney disease unknown baseline. She has chronic kidney disease based on age alone (creatinine on admission 2.1)
Hyponatremia= 127
Leukocytosis likely UTI
History of CAD mild elevation in troponin= echocardiogram on this admission ejection fraction 55 to 60% with stage II diastolic dysfunction
Type 2 diabetes
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
Plan:
follow BMP
lasix again today
continue abx
FR 40oz for now
-
-
Date of Service: September 09, 2024
CC / HPI / ROS
-
Chief Complaint:
SUKUMAR
History of Present Illness:
SUKUMAR/Cr down to 1.7
Na low stable 129
acidosis persists 20
Review of Systems:
no CP/SOB
Labs
-
Labs:
WBC 12.7 10^3/uL (4.8-10.8) H 09/09/24 06:45
RBC 3.52 10^6/uL (4.20-5.40) L 09/09/24 06:45
Hgb 9.7 g/dL (12.0-16.0) L 09/09/24 06:45
Hct 28.5 % (37.0-47.0) L 09/09/24 06:45
Plt Count 214 10^3/uL (130-400) 09/09/24 06:45
Sodium 129 mmol/L (135-145) L 09/09/24 06:45
Potassium 3.6 mmol/L (3.5-5.1) 09/09/24 06:45
Chloride 97 mmol/L (98-107) L 09/09/24 06:45
Carbon Dioxide 20 mmol/L (22-30) L 09/09/24 06:45
BUN 58 mg/dl (7-17) H 09/09/24 06:45
Creatinine 1.7 mg/dL (0.6-1.0) H 09/09/24 06:45
eGFR 28.84 09/09/24 06:45
Glucose 66 mg/dl (70-99) L 09/09/24 06:45
Calcium 8.3 mg/dl (8.4-10.2) L 09/09/24 06:45
Tao-T-Yiihcvwmdlp Pept 8340 pg/ml 09/08/24 00:22
Albumin 3.5 g/dl (3.5-5.0) 09/08/24 00:22
Physical Exam
-
Vital Signs:
Vital Signs
Temp Pulse Resp BP Pulse Ox
98.2 F 70 16 145/60 97
09/09/24 11:11 09/09/24 11:11 09/09/24 11:11 09/09/24 11:11 09/09/24 11:11
Cardiovascular:: Regular rate and rhythm
Respiratory:: Bilateral: Coarse
Lung Excursion:: Normal
Abdomen:: Nontender and Soft
Bowel Sounds:: Normal
Extremity Edema:: +2: Bilateral:
--- NOTE | 2024-09-09 12:41 | W.PN.HOSP.TC ---
Today's Communication/Plan
-
Labs going in the right direction. Continue current treatment. U-Culture positive.
Assessment / Plan
Assessment / Plan
89-year-old woman with past medical history of:
CAD status post CABG,
hypertension
diabetes
comes in with generalized weakness, chronic lower extremity swelling, a positive UA, signs of systemic infection with leukocytosis and bandemia.
Troponin was elevated at 0.18 and BNP was also elevated without other signs of overt heart failure.
PLAN:
1. Weakness - likely multifactorial. U/A is positive. COVID is negative. She has leukocytosis and bandemia. Cultures now growing gram neg B.
- continue on telemetry due to elevated trop (they have peaked)
- follow urine cultures
- blood cultures if febrile
- iv ceftriaxone
- PT evaluation
2. CAD - h/o CAD s/p CABg with trop of 0.18. now peaked. No chest pain and normal ECG. Suspect non-ischemic myocardial injury
- continue on telemetry
- cycled enzymes until they peaked, which they have
- aspirin 81 and statin
- echo:
Normal biventricular size and systolic function without regional wall motion abnormality.
Estimated LVEF 55-60%.
Moderate tricuspid regurgitation.
Moderately elevated PASP.
Estimated pulmonary artery pressure of 54 mmHg, assuming a right atrial pressure of 3 mmHg.
- cardiology consult appreciated:
'Suspect acute non-ischemic myocardial injury in setting of UTI. Will check echo. If unremarkable, she can follow up with nurse assessor as outpatient.'
- no heparin for now
- treating underlying infection
3. SUKUMAR - improving. No baseline creatinine for comparison. Patient does not follow up closely. She was on velma-i and hctz chronically. Does not look particularly dehydrated. Possible CKD
- obtain records from physicians
- renal u/s does not show blockage
- avoid nephrotoxins
- hold acei and hctz for now
- renal consult pending
4. Hyponatremia - improving Suspect acute on chronic. On fairly low dose hctz
- hold hctz
- orthostatic vital signs
-check daily
5. DM II - now in good control
- hold metformin
- continue glimepiride w/ sliding scale insulin
6. Anemia, H/H 9.6/28.1, improving
- follow daily
- no current indication for transfusion
DVT PPX - heparin sq
Full code
Anticipated Discharge: > 48 hours
Subjective/Interval History
-
Date of Service: September 09, 2024
Feels the same as yesterday
Objective Data
-
Labs:
Laboratory Results
09/09/24
06:45
WBC 12.7 H
Hgb 9.7 L
Hct 28.5 L
Plt Count 214
Sodium 129 L
Potassium 3.6
Chloride 97 L
Carbon Dioxide 20 L
BUN 58 H
Creatinine 1.7 H
Glucose 66 L
Calcium 8.3 L
Vital Signs:
Vital Signs
Temp Pulse Resp BP Pulse Ox
98.2 F 70 16 145/60 97
09/09/24 11:11 09/09/24 11:11 09/09/24 11:11 09/09/24 11:11 09/09/24 11:11
I&O
09/08/24 09/09/24 09/10/24
06:59 06:59 06:59
Intake Total 720 / 720
Balance 720 / 720
Review of Systems
-
History Source: Patient
All other systems: Reviewed and negative
Physical Exam
-
General: Well Developed, Well Nourished, No Apparent Distress, Comfortable and Obese
HEENT: Normocephalic, Atraumatic, Nose Appears Normal and Ears Appear Normal
Respiratory: Clear to Auscultation; Negative Wheezes
Cardiac: Regular Rhythm and S1/S2
GI: Soft, Nontender and Nondistended
Musculoskeletal: No Clubbing, No Cyanosis, Edema, Right Lower Extrem and Edema, Left Lower Extrem
Skin: Warm and Dry
Neuro: Awake, Alert and Oriented
Psych: Calm
Data Reviewed
-
Labs: Labs Reviewed by me
[2024-09-09] MEDS: LASIX 40 MG IV (12:57)
[2024-09-09 15:23] VITALS: BP 156/61
[2024-09-09 17:26] LABS: Glucose - Point of Care 75 mg/dl (70-99)
[2024-09-09 19:37] VITALS: BP 164/64
[2024-09-09] MEDS: LIPITOR 10 MG PO (21:07)
[2024-09-09 21:45] LABS: Glucose - Point of Care 83 mg/dl (70-99)
[2024-09-09 23:39] VITALS: BP 135/58
[2024-09-10] VITALS (8 sets, daily range): BP systolic 139–180; BP diastolic 51–81; PULSE 70; O2SAT 97
[2024-09-10] MEDS: STERILE WATER FOR INJECTION 10 ML IV (01:31)
[2024-09-10] MEDS: ROCEPHIN 1000 MG IV (01:31)
[2024-09-10 03:04] LABS: Glucose - Point of Care 50 mg/dl (70-99)
[2024-09-10 03:21] LABS: Glucose - Point of Care 74 mg/dl (70-99)
[2024-09-10 05:39] LABS: Hematocrit 27.6 % (37.0-47.0); Hemoglobin 9.6 g/dL (12.0-16.0); Mean Corp Hgb Conc. 34.8 g/dL (33.0-37.0); Mean Corpuscular Volume 80.5 fL (81.0-99.0); Mean Platelet Volume 9.8 fL (7.4-10.4); Platelet Count 220 10^3/uL (130-400); Red Blood Cell Count 3.43 10^6/uL (4.20-5.40); Red Cell Dist. Width 14.6 % (11.5-14.5); White Blood Cell Count 9.1 10^3/uL (4.8-10.8)
[2024-09-10 06:06] LABS: Blood Urea Nitrogen 51 mg/dl (7-17); Calcium 7.9 mg/dl (8.4-10.2); Carbon Dioxide 24 mmol/L (22-30); Chloride 97 mmol/L (98-107); Estimated Creatinine Clearance 29 ml/min; Glucose 129 mg/dl (70-99); Potassium 3.6 mmol/L (3.5-5.1); Sodium 130 mmol/L (135-145); eGFR 36.41
[2024-09-10 07:37] LABS: Glucose - Point of Care 153 mg/dl (70-99)
[2024-09-10] MEDS: SODIUM BICARBONATE 325 MG PO ×3 (08:52→21:12)
[2024-09-10] MEDS: LOPRESSOR 100 MG PO ×2 (08:52→19:57)
[2024-09-10] MEDS: NOVOLOG FLEXPEN-LOW RESISTANCE SC (08:52)
[2024-09-10] MEDS: AMARYL 2 MG PO (08:53)
[2024-09-10] MEDS: LOW STRENGTH ASPIRIN 81 MG PO (08:53)
[2024-09-10] MEDS: HEPARIN 5000 UNITS SC ×3 (08:53→23:19)
--- NOTE | 2024-09-10 10:24 | W.PN.HOSP.TC ---
Addendum entered and electronically signed by Deshaun Chu DO 09/10/24 16:52:
Stable for discharge. Cleared by physical therapy.
Nursing reports that patient and daughter prefer for discharge in the morning.
Original Note:
Today's Communication/Plan
-
PT/OT
Acapella
Discharge
Assessment / Plan
Assessment / Plan
Gen-AAOx3, NAD, obese
HEENT-NC, AT, anicteric, clear oral mm
Neck-supple
CV-reg, no M, +S1/S2
Lungs-clear B/L
Abd-soft, NT, ND
Ext-no edema
Musculoskeletal-no cyanosis, clubbing
Skin-warm and dry
Neuro-grossly non-focal
Psych-calm, cooperative
Sepsis due to UTI -urine culture positive for E. coli. Currently on IV ceftriaxone. Will discharge on oral antibiotics possibly later today if stable.
Acute bronchitis -with occasional wheezing, cough. Acapella ordered. Chest x-ray without signs of pneumonia. Denies history of lung disease or smoking.
CAD - h/o CAD s/p CABg with trop of 0.18. now peaked. No chest pain and normal ECG. Suspect non-ischemic myocardial injury
- continue on telemetry
- cycled enzymes until they peaked, which they have
- aspirin 81 and statin
- echo:
Normal biventricular size and systolic function without regional wall motion abnormality.
Estimated LVEF 55-60%.
Moderate tricuspid regurgitation.
Moderately elevated PASP.
Estimated pulmonary artery pressure of 54 mmHg, assuming a right atrial pressure of 3 mmHg.
Troponin elevation due to acute nonischemic myocardial injury, possibly due to sepsis.
SUKUMAR - improving. No baseline creatinine for comparison. Patient does not follow up closely. She was on velma-i and hctz chronically. Does not look particularly dehydrated. Possible CKD
- obtain records from physicians
- renal u/s does not show blockage
- avoid nephrotoxins
- hold acei and hctz for now
- renal consult pending
Hyponatremia - improving Suspect acute on chronic. Permanently discontinue HCTZ on discharge. Discussed with patient and daughter.
DM2 with hypoglycemia -discontinue glimepiride. Check hemoglobin A1c.
- hold metformin due to SUKUMAR.
Microcytic anemia -baseline hemoglobin unknown. Recommend outpatient follow-up with PCP.
Obesity due to excess calories
Full code
Dispo -can discharge later today if cleared by PT/OT. Discussed with daughter at the bedside. Outpatient follow-up.
35-minute spent in discharge process.
Anticipated Discharge: Today
Subjective/Interval History
-
Date of Service: September 10, 2024
Patient seen and examined. Complaining of occasional wheezing, coughing. Denies shortness of breath. Overall feels better with less weakness.
Objective Data
-
Labs:
Laboratory Results
09/10/24
05:20
WBC 9.1
Hgb 9.6 L
Hct 27.6 L
Plt Count 220
Sodium 130 L
Potassium 3.6
Chloride 97 L
Carbon Dioxide 24
BUN 51 H
Creatinine 1.4 H
Glucose 129 H
Calcium 7.9 L
Vital Signs:
Vital Signs
Temp Pulse Resp BP Pulse Ox
97.7 F 66 17 160/71 97
09/10/24 07:22 09/10/24 07:22 09/10/24 07:22 09/10/24 07:35 09/10/24 07:22
I&O
09/09/24 09/10/24 09/11/24
06:59 06:59 06:59
Intake Total 720 / 720 660 / 660
Balance 720 / 720 660 / 660
Review of Systems
-
History Source: Patient
All other systems: Reviewed and negative
--- NOTE | 2024-09-10 10:34 | W.DS.TRANS ---
DC Summary - [employer]
-
Discharge Instructions:
Discharge Diagnosis/Procedures Sepsis, UTI, acute bronchitis, anemia,
hyponatremia
Diet Restrict fluids to 48 oz,Diabetic, Carb
Controlled
Activity As tolerated
Driving Restrictions As prior to admission
Bathing Restrictions None
Blood Work BMP, CBC next week with your primary care doctor
Instructions:
Stand-Alone Forms:
Changes to Home Medications: Yes
Discharge Medications:
DC Medications w/original date entered in [employer]
Amlodipine Besilate 5 mg PO BID Blood Pressure 09/08/24
atorvastatin 10 mg tablet 10 mg PO HS High Cholesterol 09/08/24
lisinopril 1 tab PO DAILY Blood Pressure 09/08/24
metformin 500 mg tablet 500 mg PO BID Diabetes 09/08/24
metoprolol tartrate 100 mg tablet 100 mg PO BID Blood Pressure 09/08/24
sitagliptin phosphate 100 mg tablet (Januvia) 100 mg PO DAILY Diabetes 09/08/24
aspirin 81 mg chewable tablet 81 mg PO DAILY #0 tabs 09/10/24
ciprofloxacin HCl 500 mg tablet 500 mg PO BID #10 tabs 09/10/24
Home Medication Changes
Stop hydrochlorothiazide
Hold metformin until you speak with your primary care doctor on Thursday.
Pending Results: No
--- NOTE | 2024-09-10 10:46 | W.PN.NEPH.PH ---
Today's Communication / Plan
-
po lasix
Assessment/Plan
-
Impression:
Acute on chronic kidney disease unknown baseline. She has chronic kidney disease based on age alone (creatinine on admission 2.1)
Hyponatremia= 127
Leukocytosis likely UTI
History of CAD mild elevation in troponin= echocardiogram on this admission ejection fraction 55 to 60% with stage II diastolic dysfunction
Type 2 diabetes
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
Plan:
follow BMP
lasix again today, use po
no more HCTZ
continue abx
FR 40oz for now
can use lasix 40mg MWF to diurese and 20mg MWF maintenance in future
d/w daughter
-
-
Date of Service: September 10, 2024
CC / HPI / ROS
-
Chief Complaint:
SUKUMAR
History of Present Illness:
SUKUMAR/Cr down to 1.4
Na up to 130
acidosis resolved
Review of Systems:
no CP/SOB
Labs
-
Labs:
WBC 9.1 10^3/uL (4.8-10.8) 09/10/24 05:20
RBC 3.43 10^6/uL (4.20-5.40) L 09/10/24 05:20
Hgb 9.6 g/dL (12.0-16.0) L 09/10/24 05:20
Hct 27.6 % (37.0-47.0) L 09/10/24 05:20
Plt Count 220 10^3/uL (130-400) 09/10/24 05:20
Sodium 130 mmol/L (135-145) L 09/10/24 05:20
Potassium 3.6 mmol/L (3.5-5.1) 09/10/24 05:20
Chloride 97 mmol/L (98-107) L 09/10/24 05:20
Carbon Dioxide 24 mmol/L (22-30) 09/10/24 05:20
BUN 51 mg/dl (7-17) H 09/10/24 05:20
Creatinine 1.4 mg/dL (0.6-1.0) H 09/10/24 05:20
eGFR 36.41 09/10/24 05:20
Glucose 129 mg/dl (70-99) H 09/10/24 05:20
Calcium 7.9 mg/dl (8.4-10.2) L 09/10/24 05:20
Egd-U-Izqvezrnmri Pept 8340 pg/ml 09/08/24 00:22
Albumin 3.5 g/dl (3.5-5.0) 09/08/24 00:22
Physical Exam
-
Vital Signs:
Vital Signs
Temp Pulse Resp BP Pulse Ox
97.7 F 66 17 160/71 97
09/10/24 07:22 09/10/24 07:22 09/10/24 07:22 09/10/24 07:35 09/10/24 07:22
Cardiovascular:: Regular rate and rhythm
Respiratory:: Bilateral: CTA
Lung Excursion:: Normal
Abdomen:: Nontender and Soft
Bowel Sounds:: Normal
Extremity Edema:: +2: Bilateral:
[2024-09-10 11:32] LABS: Glucose - Point of Care 215 mg/dl (70-99)
[2024-09-10 11:40] LABS: Glycohemoglobin (HgbA1c) 10.9 % (4.0-5.6)
[2024-09-10] MEDS: LASIX 40 MG PO (12:25)
[2024-09-10] MEDS: NORVASC 5 MG PO (12:25)
[2024-09-10] MEDS: NOVOLOG FLEXPEN-LOW RESISTANCE 2 UNITS SC (12:40)
--- NOTE | 2024-09-10 15:55 | CM ---
PT OT order entered by MD
Spoke with family they requested [facility] VN Referral entered in care port.They declined VN due to staff shortage.
Family notified . Spoke with Marianna [phone] She said pt would be staying with her after dc and have Juvent[facility]ORGE visit at [address] [facility] [phone]
Referral entered \\awaiting response
PLAN Home with dgt with Juventino JORGE if accepted
[2024-09-10 16:52] LABS: Glucose - Point of Care 277 mg/dl (70-99)
[2024-09-10] MEDS: NOVOLOG FLEXPEN-LOW RESISTANCE 3 UNITS SC (18:12)
[2024-09-10] MEDS: LIPITOR 10 MG PO (21:12)
[2024-09-10 21:33] LABS: Glucose - Point of Care 283 mg/dl (70-99)
[2024-09-11] MEDS: STERILE WATER FOR INJECTION 10 ML IV (01:36)
[2024-09-11] MEDS: ROCEPHIN 1000 MG IV (01:36)
[2024-09-11 03:45] VITALS: BP 130/53
[2024-09-11 05:51] LABS: Blood Urea Nitrogen 46 mg/dl (7-17); Calcium 8.1 mg/dl (8.4-10.2); Carbon Dioxide 27 mmol/L (22-30); Chloride 94 mmol/L (98-107); Estimated Creatinine Clearance 32 ml/min; Glucose 200 mg/dl (70-99); Potassium 3.6 mmol/L (3.5-5.1); Sodium 130 mmol/L (135-145)
[2024-09-11 07:30] VITALS: BP 173/69
[2024-09-11 07:58] LABS: Glucose - Point of Care 203 mg/dl (70-99)
[2024-09-11] MEDS: NOVOLOG FLEXPEN-LOW RESISTANCE 2 UNITS SC (08:59)
[2024-09-11] MEDS: SODIUM BICARBONATE 325 MG PO (09:11)
[2024-09-11] MEDS: LOW STRENGTH ASPIRIN 81 MG PO (09:12)
[2024-09-11] MEDS: NORVASC 5 MG PO (09:12)
[2024-09-11] MEDS: LOPRESSOR 100 MG PO (09:12)
[2024-09-11] MEDS: HEPARIN 5000 UNITS SC (09:12)
--- NOTE | 2024-09-11 09:20 | CM ---
entered order for discharge.
PT evaluated pt indicated VN .
As per care port Ju[facility]OR[facility] accepted pt to see at dgt address [place]
Spoke with dgt Marianna [phone] pt will be seen at [facility] .
Marianna said she will drive pt home .
Reviewed IMM letter she agrees with dc .
PLAN Home with dgt with Juventino JORGE fax [phone]
[2024-09-11 10:00] VITALS: BP 154/53; PULSE 67; O2SAT 98
[2024-09-11 11:05] VITALS: BP 140/62
--- NOTE | 2024-09-11 11:21 | W.PN.NEPH.PH ---
Today's Communication / Plan
-
dc
Assessment/Plan
-
Impression:
Acute on chronic kidney disease unknown baseline. She has chronic kidney disease based on age alone (creatinine on admission 2.1)
Hyponatremia= 127
Leukocytosis likely UTI
History of CAD mild elevation in troponin= echocardiogram on this admission ejection fraction 55 to 60% with stage II diastolic dysfunction
Type 2 diabetes
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
Plan:
follow BMP
no more HCTZ
continue abx
FR 40oz for now
can use lasix 20mg MWF
d/w daughter
-
-
Date of Service: September 11, 2024
CC / HPI / ROS
-
Chief Complaint:
SUKUMAR
History of Present Illness:
SUKUMAR/Cr down to 1.3
Na up to 130 stable
acidosis resolved
Review of Systems:
no CP/SOB
Labs
-
Labs:
WBC 9.1 10^3/uL (4.8-10.8) 09/10/24 05:20
RBC 3.43 10^6/uL (4.20-5.40) L 09/10/24 05:20
Hgb 9.6 g/dL (12.0-16.0) L 09/10/24 05:20
Hct 27.6 % (37.0-47.0) L 09/10/24 05:20
Plt Count 220 10^3/uL (130-400) 09/10/24 05:20
Sodium 130 mmol/L (135-145) L 09/11/24 05:03
Potassium 3.6 mmol/L (3.5-5.1) 09/11/24 05:03
Chloride 94 mmol/L (98-107) L 09/11/24 05:03
Carbon Dioxide 27 mmol/L (22-30) 09/11/24 05:03
BUN 46 mg/dl (7-17) H 09/11/24 05:03
Creatinine 1.3 mg/dL (0.6-1.0) H 09/11/24 05:03
eGFR 39.80 09/11/24 05:03
Glucose 200 mg/dl (70-99) H 09/11/24 05:03
Calcium 8.1 mg/dl (8.4-10.2) L 09/11/24 05:03
Gcr-S-Xizmgvkljwt Pept 8340 pg/ml 09/08/24 00:22
Albumin 3.5 g/dl (3.5-5.0) 09/08/24 00:22
Physical Exam
-
Vital Signs:
Vital Signs
Temp Pulse Resp BP Pulse Ox
98.9 F 76 16 173/69 96
09/11/24 07:30 09/11/24 09:12 09/11/24 07:30 09/11/24 09:12 09/11/24 07:30
Cardiovascular:: Regular rate and rhythm
Respiratory:: Bilateral: CTA
Lung Excursion:: Normal
Abdomen:: Nontender and Soft
Bowel Sounds:: Normal
Extremity Edema:: +1: Bilateral:
== END 2024-09-11 11:48 | disposition home health service (06) | DRG 872 ==
LOC: 3 WEST ACU 04:38
PROVIDERS: Clinical Nurse Specialist Family Health; Internal Medicine; Nurse Practitioner; Specialist; ADMITTING PHYSICIAN Internal Medicine; ATTENDING PHYSICIAN Hospitalist; EMERGENCY PHYSICIAN Emergency Medicine; FAMILY PHYSICIAN Family Medicine; OTHER PHYSICIAN Internal Medicine; OTHER PHYSICIAN Internal Medicine Nephrology
DX: A41.9 Sepsis, unspecified organism (principal); N17.9 Acute kidney failure, unspecified; N39.0 Urinary tract infection, site not specified; I5A Non-ischemic myocardial injury (non-traumatic); B96.20 Unspecified Escherichia coli [E. coli] as the cause of diseases classified elsewhere; J20.9 Acute bronchitis, unspecified; I25.10 Atherosclerotic heart disease of native coronary artery without angina pectoris; Z95.1 Presence of aortocoronary bypass graft; E78.00 Pure hypercholesterolemia, unspecified; N18.9 Chronic kidney disease, unspecified; I12.9 Hypertensive chronic kidney disease with stage 1 through stage 4 chronic kidney disease, or unspecified chronic kidney disease; M17.10 Unilateral primary osteoarthritis, unspecified knee; M54.30 Sciatica, unspecified side; E11.22 Type 2 diabetes mellitus with diabetic chronic kidney disease; E11.65 Type 2 diabetes mellitus with hyperglycemia; Z79.84 Long term (current) use of oral hypoglycemic drugs; I45.10 Unspecified right bundle-branch block; Z79.899 Other long term (current) drug therapy; Z79.82 Long term (current) use of aspirin; T39.315A Adverse effect of propionic acid derivatives, initial encounter; E66.09 Other obesity due to excess calories; Z68.30 Body mass index [BMI] 30.0-30.9, adult; Z11.52 Encounter for screening for COVID-19
CPT/HCPCS: 51701; 70450; 71046; 76770; 80048; 80053; 80061; 81003; 81015; 81099; 82533; 82550; 82570; 82962; 83036; 83735; 83880; 83935; 84156; 84300; 84443; 84484; 85025; 85027; 87077; 87086; 87186; 87811; 93005; 93306; 96374; 97116; 97162; 97166; 97530; 99285

== ENCOUNTER → 2024-09-15 07:28 | Outpatient (REF) | payer OTHER, SELFPAY ==
[2024-09-15 08:41] LABS: % Basophils 1.1 % (0-2); % Eosinophils 2.5 % (0-6); % Immature Granulocytes 3.5 % (0-0.5); % Monocytes 6.3 % (1.7-9.3); % Neutrophils 77.6 % (42.2-75.2); Absolute Basophils 0.1 10^3/uL (0-0.2); Absolute Eosinophils 0.3 10^3/uL (0-0.7); Absolute Immature Granulocytes 0.4 10^3/uL (0-0.05); Absolute Lymphocytes 0.9 10^3/uL (1.2-3.4); Absolute Monocytes 0.7 10^3/uL (0.1-0.6); Absolute Neutrophils 8.1 10^3/uL (1.4-6.5); Hematocrit 32.4 % (37.0-47.0); Hemoglobin 10.7 g/dL (12.0-16.0); Mean Corpuscular Hgb 27.4 pg (27.0-31.0); Mean Corpuscular Volume 82.9 fL (81.0-99.0); Mean Platelet Volume 9.4 fL (7.4-10.4); Nucleated Red Blood Cells % 0 %; Platelet Count 460 10^3/uL (130-400); Red Blood Cell Count 3.91 10^6/uL (4.20-5.40); Red Cell Dist. Width 14.3 % (11.5-14.5); White Blood Cell Count 10.4 10^3/uL (4.8-10.8)
[2024-09-15 09:10] LABS: ALT (SGPT) 21 U/L (0-35); AST (SGOT) 20 U/L (14-36); Albumin 3.6 g/dl (3.5-5.0); Alkaline Phosphatase 124 U/L (38-126); Blood Urea Nitrogen 32 mg/dl (7-17); Calcium 8.6 mg/dl (8.4-10.2); Carbon Dioxide 28 mmol/L (22-30); Chloride 92 mmol/L (98-107); Glucose 332 mg/dl (70-99); Potassium 4.4 mmol/L (3.5-5.1); Sodium 132 mmol/L (135-145); Total Bilirubin 0.4 mg/dl (0.2-1.3); Total Protein 6.6 g/dl (6.3-8.2); eGFR 31.02
== END ==
LOC: REG 07:28
PROVIDERS: ATTENDING PHYSICIAN Family Medicine
DX: N17.9 Acute kidney failure, unspecified (principal)
CPT/HCPCS: 36415; 80053; 85025

== ENCOUNTER → 2024-11-07 08:52 | Outpatient (REF) | payer OTHER, SELFPAY ==
[2024-11-07 09:47] LABS: % Basophils 1.5 % (0-2); % Eosinophils 2.1 % (0-6); % Immature Granulocytes 0.6 % (0-0.5); % Lymphocytes 10.9 % (20.5-51.1); % Monocytes 6.6 % (1.7-9.3); % Neutrophils 78.3 % (42.2-75.2); Absolute Basophils 0.1 10^3/uL (0-0.2); Absolute Eosinophils 0.2 10^3/uL (0-0.7); Absolute Immature Granulocytes 0.1 10^3/uL (0-0.05); Absolute Monocytes 0.6 10^3/uL (0.1-0.6); Hematocrit 38.3 % (37.0-47.0); Hemoglobin 12.5 g/dL (12.0-16.0); Mean Corp Hgb Conc. 32.6 g/dL (33.0-37.0); Mean Corpuscular Hgb 26.3 pg (27.0-31.0); Mean Corpuscular Volume 80.6 fL (81.0-99.0); Mean Platelet Volume 9.2 fL (7.4-10.4); Nucleated Red Blood Cells % 0 %; Platelet Count 402 10^3/uL (130-400); Red Blood Cell Count 4.75 10^6/uL (4.20-5.40); Red Cell Dist. Width 14.1 % (11.5-14.5); White Blood Cell Count 8.9 10^3/uL (4.8-10.8)
[2024-11-07 10:31] LABS: ALT (SGPT) 11 U/L (0-35); AST (SGOT) 15 U/L (14-36); Albumin 4.9 g/dl (3.5-5.0); Alkaline Phosphatase 129 U/L (38-126); Blood Urea Nitrogen 53 mg/dl (7-17); Calcium 10.5 mg/dl (8.4-10.2); Carbon Dioxide 22 mmol/L (22-30); Chloride 99 mmol/L (98-107); Glucose 106 mg/dl (70-99); HDL Cholesterol 45 mg/dl; LDL Cholesterol, Calculated 83 mg/dl; Potassium 5.2 mmol/L (3.5-5.1); Sodium 134 mmol/L (135-145); Total Bilirubin 0.8 mg/dl (0.2-1.3); Total Cholesterol 154 mg/dl (50-199); Triglyceride 134 mg/dl (10-149); Very Low Density Lipoprotein 26 mg/dl (0-30); eGFR 31.02
[2024-11-07 11:31] LABS: Glycohemoglobin (HgbA1c) 8.6 % (4.0-5.6)
== END ==
LOC: REG 08:52
PROVIDERS: ATTENDING PHYSICIAN Family Medicine
DX: E11.9 Type 2 diabetes mellitus without complications (principal)
CPT/HCPCS: 36415; 80053; 80061; 83036; 85025